=== PATIENT | female | born 1945 | race Caucasian/White ===

== ENCOUNTER 2020-05-31 12:52 | Inpatient (IN) | payer MEDICARE ==
[2020-05-31 14:01] LABS: BASOPHIL 0.6 % (0-2); EOSINOPHIL 2.4 % (0-7); HCT 41.7 % (37.0-47.0); HGB 12.4 g/dl (12.5-16.0); LYMPHOCYTE 12.1 % (15-48); MCH 28.2 pg (25.0-31.0); MCHC 29.7 g/dL (32.0-36.0); MCV 94.8 fL (78.0-100.0); MONOCYTE 12.2 % (0-12); MPV 10.6 fL (6.0-9.5); NEUTROPHIL 71.7 % (41-80); NRBC 0; PLT 313 K/uL (150-400); RDW 15.4 % (11.5-14.0)
[2020-05-31 14:21] LABS: ALBUMIN 3.4 g/dL (3.4-5.0); BILIRUBIN - TOTAL 0.4 mg/dL (0.2-1.0); CREATININE 1.87 mg/dL (0.51-0.95); GLOBULIN (CALCULATION) 5.1 g/dL; TOTAL PROTEIN 8.5 g/dL (6.4-8.2)
[2020-05-31 17:49] LABS: INR 1.62 (0.9-1.2); PROTHROMBIN TIME 18.3 SECONDS (11.4-13.6)
[2020-05-31] MEDS ORDERED: WARFARIN SODIUM2 MG PO (18:42)
[2020-05-31] MEDS ORDERED: HUMALOG100 UNIT/2 SC (18:44)
[2020-05-31] MEDS ORDERED: CO Q-1050 MG PO (18:46)
[2020-05-31] MEDS ORDERED: FOLIC ACID1 MG PO (18:47)
[2020-05-31] MEDS ORDERED: DEMADEX20 MG PO (18:51)
[2020-05-31] MEDS ORDERED: ALDACTONE25 M1 PO (18:52)
[2020-05-31] MEDS ORDERED: TOPROL XL 50 MG50 MG PO ×2 (19:05→19:09)
[2020-05-31] MEDS ORDERED: COZAAR50 MG PO (19:11)
[2020-05-31] MEDS ORDERED: HYDRALAZINE25 MG PO (19:12)
[2020-05-31] MEDS ORDERED: HUMALOG100 UNIT/3 SC (19:14)
[2020-05-31] MEDS ORDERED: FLOVENT HF120 PUFFS/ INH (19:15)
[2020-05-31] MEDS ORDERED: ULORIC80 MG PO (19:16)
[2020-05-31] MEDS ORDERED: CYMBALTA 30MG C30 MG PO (19:17)
[2020-05-31] MEDS ORDERED: ZETIA10 M1 PO (19:17)
[2020-05-31] MEDS ORDERED: BUSPAR5 MG PO (19:18)
[2020-05-31] MEDS ORDERED: VITAMIN B-121000 MC1 PO (19:19)
[2020-05-31] MEDS ORDERED: VITAMIN B-650 MG PO (19:20)
[2020-05-31] MEDS ORDERED: ATARAX25 MG PO (19:23)
[2020-05-31] MEDS ORDERED: ACETAMINOPHEN325 MG PO (19:24)
[2020-05-31] MEDS ORDERED: D3 PO (19:26)
[2020-05-31] MEDS ORDERED: METOLAZONE 5MG T5 M1 PO (19:31)
[2020-05-31] MEDS ORDERED: LANTUS100 UNIT/1 SC ×2 (19:35→19:36)
[2020-05-31] MEDS ORDERED: 3IN1 COMMODE (19:36)
[2020-06-01 05:37] LABS: HCT 39.5 % (37.0-47.0); HGB 11.8 g/dl (12.5-16.0); MCH 28.1 pg (25.0-31.0); MCHC 29.9 g/dL (32.0-36.0); MPV 10.6 fL (6.0-9.5); RBC 4.2 M/uL (4.20-5.40); RDW 15.4 % (11.5-14.0); WBC 15.8 K/uL (4.0-10.5)
[2020-06-01 06:05] LABS: CREATININE 1.98 mg/dL (0.51-0.95)
[2020-06-01 06:07] LABS: POTASSIUM 6.2 mmol/L (3.5-5.1)
[2020-06-01 10:35] LABS: CREATININE 2.05 mg/dL (0.51-0.95); POTASSIUM 5.9 mmol/L (3.5-5.1)
[2020-06-01 17:27] LABS: CREATININE 2.07 mg/dL (0.51-0.95); POTASSIUM 5.9 mmol/L (3.5-5.1)
[2020-06-02 05:58] LABS: HCT 39.4 % (37.0-47.0); HGB 11.7 g/dl (12.5-16.0); MCH 28.1 pg (25.0-31.0); MCHC 29.7 g/dL (32.0-36.0); MCV 94.7 fL (78.0-100.0); MPV 10.5 fL (6.0-9.5); RBC 4.16 M/uL (4.20-5.40); RDW 15.5 % (11.5-14.0); WBC 19.7 K/uL (4.0-10.5)
[2020-06-02 06:18] LABS: CREATININE 2.21 mg/dL (0.51-0.95); POTASSIUM 5.2 mmol/L (3.5-5.1)
[2020-06-02 06:30] LABS: INR 1.48 (0.9-1.2)
--- NOTE | 2020-06-03 13:02 | NUR ---
PT WENT TO HIGHER LEVEL OF CARE
== END 2020-06-02 12:54 | disposition other institution (70) | DRG 291 ==
LOC: FER 12:52 → FICU 15:52 → FTCU 06-01 16:49
PROVIDERS: Emergency Medicine; ADMIT Hospitalist
PROC: 02HV33Z Insertion of Infusion Device into Superior Vena Cava, Percutaneous Approach (ICD-10-PCS; principal; 2020-06-02)
DX: I13.0 Hypertensive heart and chronic kidney disease with heart failure and stage 1 through stage 4 chronic kidney disease, or unspecified chronic kidney disease (principal); J18.9 Pneumonia, unspecified organism; J96.21 Acute and chronic respiratory failure with hypoxia; G93.41 Metabolic encephalopathy; J96.22 Acute and chronic respiratory failure with hypercapnia; J44.1 Chronic obstructive pulmonary disease with (acute) exacerbation; N18.4 Chronic kidney disease, stage 4 (severe); I50.9 Heart failure, unspecified; N17.9 Acute kidney failure, unspecified; Z66 Do not resuscitate; I48.20 Chronic atrial fibrillation, unspecified; J44.0 Chronic obstructive pulmonary disease with (acute) lower respiratory infection; E11.22 Type 2 diabetes mellitus with diabetic chronic kidney disease; E66.01 Morbid (severe) obesity due to excess calories; Z20.822 Contact with and (suspected) exposure to COVID-19; I27.20 Pulmonary hypertension, unspecified; E78.5 Hyperlipidemia, unspecified; F41.9 Anxiety disorder, unspecified; Z79.01 Long term (current) use of anticoagulants; Z98.51 Tubal ligation status; K21.9 Gastro-esophageal reflux disease without esophagitis; G47.33 Obstructive sleep apnea (adult) (pediatric); Z90.49 Acquired absence of other specified parts of digestive tract; E87.5 Hyperkalemia
CPT/HCPCS: 36415; 36600; 71045; 80048; 80053; 82803; 82962; 83605; 83880; 84145; 84484; 85025; 85610; 87040; 93005; 94640; 94660; 97110; 97166; 97530; J0456; J0696; J1940; J2920; J2930; J3486; J7030; J7050; Q0162; U0002